=== PATIENT | male | born 1980 | race African-American/Black ===

== ENCOUNTER 2016-11-24 10:48 | Inpatient (IN) | payer OTHER ==
[~2016-11-24] VITALS: Ht 185.4 cm; Wt 88.0 kg
[2016-11-24 10:50] VITALS: BP 138/79; PULSE 120; RESP 20; TEMP 97.9; O2SAT 97
--- NOTE | 2016-11-24 11:11 | PD ---
HPI Chief Complaint: Injury Time Seen by Provider: 11:11 Travel History International Travel<30 days: No Contact w/Intl Traveler<30days: No Traveled to known affect area: No History of Present Illness HPI 36-year-old male presents to the emergency room with complaint of the left knee injury that occurred today. He said he was playing basketball and him and another dago hit knees together. Denies paresthesias, loss of sensation to the affected extremity. Reports decreased range of motion and strength to the affected extremity. Says he has been walking on the affected leg. Has not taken any medications or tried any treatments to alleviate his symptoms. Pain is constant and aggravated with movement and palpation. Denies fever, chills, nausea, vomiting. No known allergies. No other medical complaints. No other modifying factors or associated signs and symptoms. [facility] Social History Alcohol Use: No Tobacco Use: No Substance Use: No Allergies-Medications (Allergen,Severity, Reaction): Coded Allergies: No Known Allergies (Verified , 11/24/16) Reported Meds & Prescriptions Reported Meds & Active Scripts Active No Active Prescriptions or Reported Medications Review of Systems Except as stated in HPI: all other systems reviewed are Neg Physical Exam Narrative GENERAL: Well-nourished, well-developed male patient, in no acute distress SKIN: Warm and dry. HEAD: Atraumatic. Normocephalic. EYES: Pupils equal and round. No scleral icterus. No injection or drainage. ENT: Mucosa pink and moist. Airway patent. NECK: Trachea midline. CARDIOVASCULAR: Regular rate. RESPIRATORY: No accessory muscle use. GASTROINTESTINAL: Flat. MUSCULOSKELETAL: Left knee is mildly edematous and without erythema, ecchymosis ; patella feels and displaced on palpation; with tenderness on palpation to the patella aspect; patient able to passively bend the knee but not actively and is unable to maintain the knee and bent position. Left lower extremities supple and non-tense with 2+ pedal pulse and sensory intact. Patella appears and on palpation feels obviously and is sitting superiorly than its normal position. No cyanosis. NEUROLOGICAL: Awake and alert. Oriented 3. No obvious cranial nerve deficits. Motor grossly within normal limits. Normal speech. PSYCHIATRIC: Appropriate mood and affect; insight and judgment normal. Data Data Last Documented VS Vital Signs Date Time Temp Pulse Resp B/P Pulse Ox O2 Delivery O2 Flow Rate FiO2 11/24/16 10:50 97.9 120 20 138/79 97 Room Air Orders Knee, Complete (4vws) (11/24/16 11:01) Oxycodone-Acetamin 5-325 Mg (Percocet (11/24/16 11:15) Canvas Knee Splint (Cks) (11/24/16 ) Crutches (11/24/16 15:50) Basic Metabolic Panel (Bmp) (11/24/16 15:52) Complete Blood Count With Diff (11/24/16 15:52) Prothrombin Time / Inr (Pt) (11/24/16 15:52) Act Partial Throm Time (Ptt) (11/24/16 15:52) Iv Access Insert/Monitor (11/24/16 15:52) Sodium Chloride 0.9% Flush (Ns Flush) (11/24/16 16:00) Admit Order (Ed Use Only) (11/24/16 16:35) Consult Orthopedic (11/24/16 ) [facility] Medical Decision Making Medical Screen Exam Complete: Yes Emergency Medical Condition: Yes Medical Record Reviewed: Yes Differential Diagnosis Patellar fracture, knee contusion, patellar dislocation Narrative Course 36-year-old male with left knee injury. The patella is palpated superiorly and feels . Percocet ordered and administered in the ER. Left knee x-ray ordered. 1210: Left knee x-ray concludes Abnormal patella tendon with thickening and large prominent calcifications. This likely is secondary to a sequelae of remote trauma. There may be acute soft tissue swelling. Callout to ortho placed. 0328: I spoke with Dr. Apple and he is reviewing the x-ray and will call back. 0345: I spoke with Dr. Apple and he recommended to admit the patient for surgery tomorrow. Canvas knee splint and crutches ordered. Preop orders entered. Call placed for admission. I spoke with Dr. Smith, and the patient will be admitted to medical. Physician Communication Physician Communication Dr. Apple, ortho; Dr. Smith Diagnosis Primary Impression: Rupture of left patellar tendon Qualified Code: S86.812A - Rupture of left patellar tendon, initial encounter Admitting Information Admitting Physician Requests: Admit Scripts No Active Prescriptions or Reported Meds Ann Galvez Nov 24, 2016 11:11
[2016-11-24] MEDS ORDERED: oxyCODONE/ACETAMINOPHEN 5 MG/325 MG TAB PO ONE (11:15)
--- NOTE | 2016-11-24 12:07 | RADRPT ---
EXAM DATE/TIME: 11/24/2016 11:21 [place] COMPARISON: No previous studies available for comparison. INDICATIONS : Bumped knees with someone playing basketball. MEDICAL HISTORY : None. SURGICAL HISTORY : None. ENCOUNTER: Initial ACUITY: 1 day PAIN SCORE: 10/10 LOCATION: Left knee FINDINGS: Four view examination of the left knee demonstrates no evidence of fracture or dislocation. Bony min eralization is normal. There are prominent calcifications in the patella tendon which is thickened. T he articular surfaces are intact. The suprapatellar soft tissues have a normal configuration. CONCLUSION: Abnormal patella tendon with thickening and large prominent calcifications. This like ly is secondary to a sequelae of remote trauma. There may be acute soft tissue swelling. Reilly Mckinnon MD on November 24, 2016 at 12:04 Board Certified Radiologist. This report was verified electronically.
[2016-11-24] MEDS ORDERED: SODIUM CHLORIDE 0.9% FLUSH 10 ML FLUSH IV FLUSH PRN (16:00)
[2016-11-24] MEDS ORDERED: ACETAMINOPHEN 325 MG TAB PO PRN (17:00)
[2016-11-24] MEDS ORDERED: ONDANSETRON HCL 4 MG/2 ML VIAL IVP PRN (17:00)
[2016-11-24] MEDS ORDERED: DOCUSATE SODIUM 100 MG CAP PO SCH (17:00)
[2016-11-24] MEDS ORDERED: NALOXONE HCL 0.4 MG/ML AMP IV PRN (17:00)
--- NOTE | 2016-11-24 17:00 | HHI.HP ---
[facility] Service [facility] Primary Care Physician No Primary Care Physician Admission Diagnosis left patellar tendon rupture Diagnoses: Chief Complaint: left knee pain Travel History International Travel<30 Days: No Contact w/Intl Traveler <30 Da: No Traveled to Known Affected Are: No History of Present Illness 36 y/o with no medical history presented to the ED with complaints of left knee pain after playing basketball. He states he was playing basketball this morning and him and another player collided knees together. Post collision, pain was excrutiation and was a 10/10. Currently pain is a throbbing pain, 8/10, and it is worse with movement. He denies any associated symptoms. No chest pain, sob, fever or chills. Review of Systems Constitutional: DENIES: Fever, Chills Respiratory: DENIES: Cough, Shortness of breath Cardiovascular: DENIES: Chest pain, Lower Extremity Edema Gastrointestinal: DENIES: Constipation, Diarrhea, Nausea, Vomiting Genitourinary: DENIES: Hematuria, Dysuria Musculoskeletal: COMPLAINS OF: Joint pain, Joint Swelling Integumentary: DENIES: Rash Hematologic/lymphatic: DENIES: Lymphadenopathy Immunologic/allergic: DENIES: Urticaria Neurologic: DENIES: Headache Past Family Social History Past Medical History Patient denies any medical history Past Surgical History Patient denies any surgical history Reported Medications Reported Meds & Active Scripts Active No Active Prescriptions or Reported Medications Allergies: Coded Allergies: No Known Allergies (Verified , 11/24/16) Active Ordered Medications Current Medications Medications (Trade) Dose Ordered Sig/Luke Route Start Time Stop Time Status Last Admin (NS Flush) 2 ml UNSCH PRN IV FLUSH 11/24/16 16:00 Family History Mom: rectal cancer Dad: kidney disease Social History Tobacco use: Denies Alcohol use: occasionally Illicit drug use: Denies Physical Exam Vital Signs Vital Signs Date Time Temp Pulse Resp B/P Pulse Ox O2 Delivery O2 Flow Rate FiO2 11/24/16 10:50 97.9 120 20 138/79 97 Room Air Physical Exam GENERAL: This is a well-nourished, well-developed patient, in no apparent distress. SKIN: No rashes, ecchymoses or lesions. Cool and dry. HEAD: Atraumatic. Normocephalic. No temporal or scalp tenderness. EYES: Pupils equal round and reactive. Extraocular motions intact. No scleral icterus. No injection or drainage. ENT: Nose without bleeding, purulent drainage or septal hematoma. Throat without erythema, tonsillar hypertrophy or exudate. Airway patent. NECK: Trachea midline. No JVD or lymphadenopathy. CARDIOVASCULAR: Regular rate and rhythm without murmurs. RESPIRATORY: Clear to auscultation. Breath sounds equal bilaterally. No wheezes , rales, or rhonchi. GASTROINTESTINAL: Abdomen soft, non-tender, nondistended. No palpable masses. No guarding. MUSCULOSKELETAL: Left knee swelling, with effusion. able to wiggle his toes, cap refill <2 secs, sensation is intact. No joint tenderness, effusion, or edema noted. No calf tenderness. Negative Homans sign bilaterally. NEUROLOGICAL: Awake and alert. Motor and sensory otherwise grossly within normal limits. Normal speech. Imaging Last Impressions Knee X-Ray 11/24/16 1101 Signed Impressions: Service Date/Time: Thursday, November 24, 2016 11:21 - CONCLUSION: Abnormal patella tendon with thickening and large prominent calcifications. This likely is secondary to a sequelae of remote trauma. There may be acute soft tissue swelling. Reilly Mckinnon MD Assessment and Plan Problem List: (1) Rupture of left patellar tendon ICD Code: S86.812A Status: Acute Assessment and Plan 36 y/o with no medical history presented to the ED with complaints of left knee pain after playing basketball. He states he was playing basketball this morning and him and another player collided knees together. Patella tendon rupture, left Knee xray: Abnormal patella tendon with thickening and large prominent calcifications. This likely is secondary to a sequelae of remote trauma. There may be acute soft tissue swelling. -Consult ortho, Dr. Apple is planning surgery in AM -Pain management with [place] PO and Morphine IV. Bowel regimen added. -NPO after midnight, Start IVF at midnight -CKS to left knee DVT prophylaxis: SCDs Written by YOANA Barrera acting as scribe for Dr. Smith on 11/24/16 at 17: 00. This note was transcribed by scribe Melyssa Cerda. I, Dr. Na Smith personally performed the history, physical exam, and medical decision making; and confirmed the accuracy of the information in the transcribed note. Authenticated by Dr. Na Smith on 11/24/16 at 1700. Code Status Full Discussed Condition With Patient, RN and ER physician Physician Certification 2 Midnight Certification Type: Admission for Inpatient Services Order for Inpatient Services The services are ordered in accordance with Medicare regulations or non- Medicare payer requirements, as applicable. In the case of services not specified as inpatient-only, they are appropriately provided as inpatient services in accordance with the 2-midnight benchmark. Estimated LOS (days): 2 days is the estimated time the patient will need to remain in the hospital, assuming treatment plan goals are met and no additional complications. Post-Hospital Plan: Home Problem Qualifiers (1) Rupture of left patellar tendon: Qualified Code: S86.812A - Rupture of left patellar tendon, initial encounter Melyssa Cerda Nov 24, 2016 17:00 Na Smith MD Nov 24, 2016 18:56
[2016-11-24 17:05] LABS: AUTOMATED NEUTROPHIL # 5.7 TH/MM3 (1.8-7.7); BASOPHIL # 0.1 TH/MM3 (0-0.2); BASOPHIL % 0.7 % (0.0-2.0); EOSINOPHIL # 0.1 TH/MM3 (0-0.4); EOSINOPHIL % 1.4 % (0.0-4.0); HEMATOCRIT 40.7 % (39.0-51.0); HEMO FLAGS DIFF FINAL; LYMPH % 21.1 % (9.0-44.0); LYMPHOCYTE # 1.7 TH/MM3 (1.0-4.8); MEAN CELL VOLUME 81.1 FL (80.0-100.0); MEAN CORPUSCULAR HGB CONC 33.3 % (32.0-36.0); NEUT % 69.8 % (16.0-70.0); PLATELET COUNT 235 TH/MM3 (150-450); RED BLOOD COUNT 5.02 MIL/MM3 (4.50-5.90); RED CELL DISTRIBUTION WIDTH 13.7 % (11.6-17.2); WHITE BLOOD COUNT 8.2 TH/MM3 (4.0-11.0)
[2016-11-24 17:19] LABS: APTT (PATIENT) 23.6 SEC (24.3-30.1)
[2016-11-24 17:27] LABS: BICARBONATE 25.2 MEQ/L (21.0-32.0)
[2016-11-24] MEDS ORDERED: ACETAMINOPHEN/HYDROcodone 325 MG/5 MG TAB PO PRN (17:30)
[2016-11-24 17:40] VITALS: BP 136/90; PULSE 60; RESP 14; TEMP 99.5; O2SAT 96
[2016-11-24] MEDS ORDERED: MORPHINE SULFATE 4 MG/ML INJ IV PUSH PRN (18:30)
[2016-11-24] MEDS: ACETAMINOPHEN/HYDROcodone 325 MG/10 MG TAB PO PRN (20:10)
[2016-11-24 20:40] VITALS: BP 167/98; PULSE 65; RESP 18; TEMP 97.7; O2SAT 98
[2016-11-24] MEDS ORDERED: SODIUM CHLOR 0.9% 1000 ML INJ 1,000 ML IV SCH (22:30)
[2016-11-25] MEDS ORDERED: SODIUM CHLOR 0.9% 1000 ML INJ 1,000 ML IV SCH
[2016-11-25 00:22] VITALS: BP 167/98; PULSE 65; RESP 18; TEMP 97; O2SAT 98
[2016-11-25] MEDS: ACETAMINOPHEN/HYDROcodone 325 MG/10 MG TAB PO PRN ×3 (04:20→18:37)
[2016-11-25 05:31] VITALS: BP 128/82; PULSE 60; RESP 18; TEMP 97.5; O2SAT 99
[2016-11-25] MEDS ORDERED: ceFAZolin INJ 1,000 MG VIAL ONE (07:21)
[2016-11-25] MEDS ORDERED: GENTAMICIN SULFATE 80 MG/2 ML VIAL ONE (07:21)
[2016-11-25] MEDS ORDERED: BUPIVACAINE/EPINEPHRINE 0.25% PF 30 ML VIAL ONE (07:21)
[2016-11-25] MEDS ORDERED: VANCOMYCIN HCL 1000 MG VIAL ONE (07:21)
[2016-11-25 07:29] VITALS: BP 120/80; PULSE 65; RESP 17; TEMP 96.8; O2SAT 100
[2016-11-25 07:32] LABS: AUTOMATED NEUTROPHIL # 3.4 TH/MM3 (1.8-7.7); BASOPHIL # 0.1 TH/MM3 (0-0.2); BASOPHIL % 0.8 % (0.0-2.0); EOSINOPHIL # 0.4 TH/MM3 (0-0.4); EOSINOPHIL % 5.8 % (0.0-4.0); HEMATOCRIT 39.4 % (39.0-51.0); HEMO FLAGS DIFF FINAL; LYMPH % 30.6 % (9.0-44.0); LYMPHOCYTE # 2.1 TH/MM3 (1.0-4.8); MEAN CELL VOLUME 81.7 FL (80.0-100.0); MEAN CORPUSCULAR HEMOGLOBIN 26.5 PG (27.0-34.0); MEAN CORPUSCULAR HGB CONC 32.5 % (32.0-36.0); MONO % 11.8 % (0.0-8.0); PLATELET COUNT 217 TH/MM3 (150-450); RED BLOOD COUNT 4.82 MIL/MM3 (4.50-5.90); RED CELL DISTRIBUTION WIDTH 13.9 % (11.6-17.2); WHITE BLOOD COUNT 6.7 TH/MM3 (4.0-11.0)
[2016-11-25] MEDS ORDERED: ACETAMINOPHEN 1000 MG/100 ML VIAL IV ONE (07:48)
[2016-11-25] MEDS ORDERED: DICLOFENAC SODIUM 37.5 MG/ML VIAL IV PUSH ONE (07:48)
[2016-11-25 07:50] LABS: BICARBONATE 27.6 MEQ/L (21.0-32.0); POTASSIUM 4.1 MEQ/L (3.5-5.1)
[2016-11-25] MEDS ORDERED: DOCUSATE SODIUM 100 MG CAP PO SCH (09:00)
[2016-11-25] MEDS ORDERED: *morphine SULFATE 8 MG/ML PERIprocedure ONLY ONE ×2 (10:08→10:24)
--- NOTE | 2016-11-25 10:11 | PD.CONS ---
cc: James Apple Jr., MD HPI Service [facility] Consult Requested By Primary Care Physician No Primary Care Physician Admission Diagnosis left patellar tendon rupture Diagnoses: (1) Rupture of left patellar tendon Diagnosis: Principal Chief Complaint: Left patella tendon rupture History of Present Illness 36 y/o with no medical history presented to the ED with complaints of left knee pain after playing basketball. Due injury occurred while playing basketball when he collided knees with another player. pain 10/10, inability to bear weight or extend the knee.exacerbated by range of motion, pain is throbbing nonradiating. He denies any associated symptoms. No chest pain, sob, fever or chills. Review of Systems Constitutional: DENIES: Fever, Chills Respiratory: DENIES: Cough, Shortness of breath Cardiovascular: DENIES: Chest pain, Lower Extremity Edema Gastrointestinal: DENIES: Constipation, Diarrhea, Nausea, Vomiting Genitourinary: DENIES: Hematuria, Dysuria Musculoskeletal: COMPLAINS OF: Joint pain, Joint Swelling Integumentary: DENIES: Rash Hematologic/lymphatic: DENIES: Lymphadenopathy Immunologic/allergic: DENIES: Urticaria Neurologic: DENIES: Headache Past Family Social History Past Medical History Patient denies any medical history Past Surgical History Patient denies any surgical history Reported Medications Reported Meds & Active Scripts Active No Active Prescriptions or Reported Medications Allergies: Coded Allergies: No Known Allergies (Verified , 11/24/16) Active Ordered Medications Current Medications Medications (Trade) Dose Ordered Sig/Luke Route Start Time Stop Time Status Last Admin (NS Flush) 2 ml UNSCH PRN IV FLUSH 11/24/16 16:00 Family History Mom: rectal cancer Dad: kidney disease Social History Tobacco use: Denies Alcohol use: occasionally Illicit drug use: Denies Past Family Social History Past Medical History Patient denies any medical history Past Surgical History Patient denies any surgical history Allergies: Coded Allergies: No Known Allergies (Verified , 11/24/16) Active Ordered Medications Current Medications Medications (Trade) Dose Ordered Sig/Luke Route Start Time Stop Time Status Last Admin (NS Flush) 2 ml UNSCH PRN IV FLUSH 11/24/16 16:00 (Tylenol) 650 mg Q4H PRN PO 11/24/16 17:00 (Zofran Inj) 4 mg Q6H PRN IVP 11/24/16 17:00 (Narcan Inj) 0.4 mg UNSCH PRN IV 11/24/16 17:00 ([place] 5-325 Mg) 1 tab Q4H PRN PO 11/24/16 17:30 ([place] 10-325 Mg) 1 tab Q6H PRN PO 11/24/16 17:30 11/25/16 04:20 Morphine Sulfate 2 mg 2 mg Q4H PRN IV PUSH 11/24/16 18:30 (NS 1000 ml Inj) 1,000 ml @ 125 mls/hr Q8H IV 11/24/16 22:30 (Colace) 100 mg BID PO 11/25/16 09:00 Reported Meds & Active Scripts Active No Active Prescriptions or Reported Medications Family History Mom: rectal cancer Dad: kidney disease Social History Tobacco use: Denies Alcohol use: occasionally Illicit drug use: Denies Physical Exam Vital Signs Vital Signs Date Time Temp Pulse Resp B/P Pulse Ox O2 Delivery O2 Flow Rate FiO2 11/25/16 07:29 96.8 65 17 120/80 100 11/25/16 05:31 97.5 60 18 128/82 99 11/25/16 00:22 97.0 65 18 167/98 98 11/24/16 20:40 97.7 65 18 167/98 98 11/24/16 17:40 99.5 60 14 136/90 96 Room Air 11/24/16 10:50 97.9 120 20 138/79 97 Room Air Physical Exam Alert awake and oriented x 3. No acute distress. Head: NC/AT Neck: No pain with any range of motion and neck. No tenderness to palpation along posterior cervical elements. Negative Spurling. Pulmonary: Normal respiratory effort. Upper extremity: no deformity, no tenderness, grossly Intact sensation distally in median, ulnar, and radial nerve. Intact motor in anterior interosseous, posterior interosseous, and ulnar nerve. 2+ radial artery pulses. Good cap refill. RIGHT lower extremity: Neurovascularly intact, +EHL/FHL + PT/DP pulses. Supple compartments. Negative Homans sign. LEFT lower extremity: Palpable defect under the patella with patella vero. Unable to perform a straight leg raise. Grossly Neurovascularly intact, +EHL/FHL , + PT/DP pulses. Supple compartments. Negative Homans sign. Laboratory Laboratory Tests Test 11/24/16 11/25/16 16:50 06:40 White Blood Count 8.2 6.7 Red Blood Count 5.02 4.82 Hemoglobin 13.6 12.8 Hematocrit 40.7 39.4 Mean Corpuscular Volume 81.1 81.7 Mean Corpuscular Hemoglobin 27.0 26.5 Mean Corpuscular Hemoglobin 33.3 32.5 Concent Red Cell Distribution Width 13.7 13.9 Platelet Count 235 217 Mean Platelet Volume 8.5 8.5 Neutrophils (%) (Auto) 69.8 51.0 Lymphocytes (%) (Auto) 21.1 30.6 Monocytes (%) (Auto) 7.0 11.8 Eosinophils (%) (Auto) 1.4 5.8 Basophils (%) (Auto) 0.7 0.8 Neutrophils # (Auto) 5.7 3.4 Lymphocytes # (Auto) 1.7 2.1 Monocytes # (Auto) 0.6 0.8 Eosinophils # (Auto) 0.1 0.4 Basophils # (Auto) 0.1 0.1 CBC Comment DIFF FINAL DIFF FINAL Differential Comment Prothrombin Time 11.0 Prothromb Time International 1.0 Ratio Activated Partial 23.6 Thromboplast Time Sodium Level 138 140 Potassium Level 4.0 4.1 Chloride Level 105 106 Carbon Dioxide Level 25.2 27.6 Anion Gap 8 6 Blood Urea Nitrogen 17 17 Creatinine 1.35 1.37 Estimat Glomerular Filtration 73 72 Rate Random Glucose 87 100 Calcium Level 9.7 9.4 Result Diagram: 11/25/16 0640 11/25/16 0640 Imaging Last 72 hours Impressions Knee X-Ray 11/24/16 1101 Signed Impressions: Service Date/Time: Thursday, November 24, 2016 11:21 - CONCLUSION: Abnormal patella tendon with thickening and large prominent calcifications. This likely is secondary to a sequelae of remote trauma. There may be acute soft tissue swelling. Reilly Mckinnon MD Assessment & Plan Assessment and Plan 36-year-old male sustained left knee injury while playing basketball. On exam he has a positive gap sign, with patella vero and disruption of the extensor mechanism indicative of a left patella tendon rupture. This injury requires primary repair the tendon. I discussed my treatment plans with the patient, as well as risks, benefits and alternatives of surgical Intervention versus nonoperative treatment. In this case, the risks of operative intervention involves bleeding, infection, risks of damage to neurovascular structures, the risk of needing further surgery, posttraumatic arthritis and the risks involved with complication from anesthesia. We will proceed with the above procedure. The patient accepts these risks; understands and agrees with my recommendations. I also discussed my proposed postoperative care and follow-up plan. All questions were answered. Plan for OR []. Nothing by mouth []. Patient consented. Thanks for the consult, thanks for allowing me to participate in this patient's medical care. James Apple Jr., MD Nov 25, 2016 10:11
[2016-11-25] MEDS ORDERED: fentaNYL CITRATE 250 MCG/5 ML AMP ONE (10:15)
--- NOTE | 2016-11-25 10:16 | PD.OP ---
cc: James Apple Jr., MD Operative Report Date of Surgery: Nov 25, 2016 Preoperative Diagnosis: Left patella tendon rupture Postoperative Diagnosis: Same Procedure: Left patellar tendon primary repair Anesthesia: Gen. Surgeon: James Apple Legal Executive(s): Staff Resident Surgeon: None Operation and Findings: INDICATION FOR PROCEDURE: This a healthy male presented to emergency department after a fall while playing basketball. The extremity was neurovascular intact, had a large knee effusion and his compartments were soft. On exam she is unable to perform a straight leg raise indicative of extensor mechanism disruption. This injury requires primary repair. I discussed with the patient at length the potential for substantial perioperative risks involving wound healing complications, infection, primarily as well as perioperative complications from anesthesia, blood loss, need for transfusion, infection, neurovascular injury, DVT and PE. The patient expressed verbal understanding and agreed with my recommendations. DESCRIPTION OF PROCEDURE: The operative site was marked and the planned procedure confirmed with the patient awake prior to administration of anesthesia. The LEFT lower extremity was prepped with Cloraprep and draped in the usual sterile manner. The limb was exsanguinated with Esmarch bandage and pneumatic tourniquet was inflated to 300 mmHg. Again, before making the incision , a timeout was done to verify the patients name, side, consent and the procedure with all members of the surgical team. With patient supine and his left knee flexed on a triangle, a 8cm anterior midline incision was made. We carried the dissection through the paratenon, onto the patella tendon, where a complete tear was found. There was also severe injury to the medial and lateral retinaculum. There was large hematoma which was evacuated. The tendon ends were cleaned and debrided with a rongeur up to healthy looking tissues. There was significant calcification at the proximal tendon fibers. The distal pole of the patella was also cleaned down to bleeding bone with a rongeur. 2 fibertapes were used to run a locking Krak w type of suture through the quad tendon with 4 free limbs. The free limbs where ran through the patella via Transosseous tunnels. With the knee in extension the sutures were tied. The retinaculum was repaired with #1 Vicryl suture. The repair remained intact after the knee was placed through passive range of motion up to 90 of flexion. The paratenon and the subcutaneous were closed in layers with 3-0 Vicryl. The skin was closed with anjali. Tourniquet was taken down. Hemostasis obtained. Sterile dressing was applied. The knee was placed in extension, in a knee immobilizer. The patients compartments were soft. The patient left the operating room with good pulses in the foot and stable vital signs. There were no complications. Patient transferred to PACU. James Apple Jr., MD Nov 25, 2016 10:16
[2016-11-25] MEDS ORDERED: MIDAZOLAM HCL 2 MG/2 ML VIAL ONE (10:18)
[2016-11-25] MEDS ORDERED: PERC5TAB12 PO (10:25)
[2016-11-25] MEDS ORDERED: KETOROLAC TROMETHAMINE 30 MG/ML (IVP) VIAL ONE (10:28)
[2016-11-25] MEDS ORDERED: MORPHINE SULFATE 8 MG/ML INJ IV PUSH PRN (10:30)
[2016-11-25] MEDS ORDERED: ZOLPIDEM TARTRATE 5 MG TAB PO PRN (10:30)
[2016-11-25] MEDS ORDERED: PROMETHAZINE HCL 25 MG TAB PO PRN (10:30)
[2016-11-25] MEDS ORDERED: oxyCODONE/ACETAMINOPHEN 5 MG/325 MG TAB PO PRN (10:30)
[2016-11-25] MEDS ORDERED: SODIUM CHLORIDE 0.9% FLUSH 10 ML FLUSH IV FLUSH PRN (10:30)
[2016-11-25] MEDS ORDERED: Post-op Orders (for Pharmacy) MISC XX ONE (10:30)
[2016-11-25] MEDS: KETOROLAC TROMETHAMINE 30 MG/ML (IVP) VIAL IVP SCH ×2 (10:31→17:00)
[2016-11-25] MEDS ORDERED: DO NOT ADM ANY ANTICOAGULANT DRUGS PRN (11:00)
[2016-11-25 11:54] VITALS: BP 163/98; PULSE 60; RESP 17; TEMP 96.7; O2SAT 100
[2016-11-25] MEDS ORDERED: PROPOFOL 200 MG/20 ML AMP IV ONE (12:53)
[2016-11-25] MEDS ORDERED: PHENYLEPH/NS 1000 MCG/10 ML SYR IV ONE (12:54)
[2016-11-25] MEDS ORDERED: LACTATED RINGER'S 1000 ML INJ 1,000 ML IV ONE (12:54)
[2016-11-25] MEDS ORDERED: ePHEDrine/NS 25 MG/5 ML SYR IV ONE (12:54)
[2016-11-25] MEDS ORDERED: ONDANSETRON HCL 4 MG/2 ML VIAL IV PUSH ONE (12:54)
[2016-11-25] MEDS ORDERED: NEOSTIGMINE 3 MG/3 ML SYR IV ONE (12:54)
[2016-11-25] MEDS ORDERED: GETGO ROLLING W1 MI1 (14:01)
--- NOTE | 2016-11-25 14:04 | HHI.PR ---
Subjective Remarks pain controlled. Objective Vitals Vital Signs Date Time Temp Pulse Resp B/P Pulse Ox O2 Delivery O2 Flow Rate FiO2 11/25/16 11:54 96.7 60 17 163/98 100 11/25/16 10:44 63 16 150/88 100 Nasal Cannula 3 11/25/16 10:30 62 16 152/78 100 Nasal Cannula 3 11/25/16 10:15 60 16 169/98 100 Nasal Cannula 3 11/25/16 10:06 98.2 79 16 162/96 100 Nasal Cannula 3 11/25/16 07:29 96.8 65 17 120/80 100 11/25/16 05:31 97.5 60 18 128/82 99 11/25/16 00:22 97.0 65 18 167/98 98 11/24/16 20:40 97.7 65 18 167/98 98 11/24/16 17:40 99.5 60 14 136/90 96 Room Air Result Diagram: 11/25/16 0640 11/25/16 0640 Imaging Last Impressions Knee X-Ray 11/24/16 1101 Signed Impressions: Service Date/Time: Thursday, November 24, 2016 11:21 - CONCLUSION: Abnormal patella tendon with thickening and large prominent calcifications. This likely is secondary to a sequelae of remote trauma. There may be acute soft tissue swelling. Reilly Mckinnon MD Objective Remarks GENERAL: This is a well-nourished, well-developed patient, in no apparent distress. CARDIOVASCULAR: Regular rate and rhythm without murmurs, gallops, or rubs. RESPIRATORY: Clear to auscultation. Breath sounds equal bilaterally. No wheezes , rales, or rhonchi. GASTROINTESTINAL: Abdomen soft, non-tender, nondistended. Normal active bowel sounds MUSCULOSKELETAL: Extremities without clubbing, cyanosis, or edema. NEURO: Alert & Oriented x4 to person, place, time, situation. Moves all ext x4 A/P Problem List: (1) Rupture of left patellar tendon Status: Acute Plan: - s/p surgical repair of ruptured tendon with Dr. Apple, 11/25/16 - case d/w Dr. Apple (11/25/16) - discharge to home this evening - percocet prn - f/u with Dr. Apple in 2 weeks. Problem Qualifiers (1) Rupture of left patellar tendon: Qualified Code: S86.812A - Rupture of left patellar tendon, initial encounter Jordan Cisneros DO Nov 25, 2016 14:04
[2016-11-25 16:00] VITALS: BP 132/82; PULSE 69; RESP 17; TEMP 95.8; O2SAT 98
[2016-11-25] MEDS ORDERED: SODIUM CHLORIDE 0.9% FLUSH 10 ML FLUSH IV FLUSH SCH (21:00)
[2016-11-25] MEDS ORDERED: ENOXAPARIN SODIUM 30 MG/0.3 ML SYRINGE SQ SCH (22:00)
[2016-11-26] MEDS ORDERED: DOCUSATE SODIUM 100 MG CAP PO SCH (21:00)
== END 2016-11-25 18:50 | disposition home health service (06) | DRG 502 ==
LOC: NEPK 10:48 → NEDA 16:38 → N06B 18:31
PROVIDERS: ADMIT Hospitalist; ATTEND Hospitalist
PROC: 0LMK0ZZ Reattachment of Left Hip Tendon, Open Approach (ICD-10-PCS; principal; 2016-11-25 07:58)
DX: S76.112A Strain of left quadriceps muscle, fascia and tendon, initial encounter (principal); Z87.891 Personal history of nicotine dependence; W51.XXXA Accidental striking against or bumped into by another person, initial encounter; Y93.67 Activity, basketball; Y92.838 Other recreation area as the place of occurrence of the external cause
CPT/HCPCS: 73564; 80048; 85025; 85610; 85730; 99284; E0113; J0131; J0690; J1130; J1580; J1885; J2250; J2270; J2370; J2405; J2710; J3010; J3370; J7030; J7120; L1830